=== PATIENT | male | born 1955 | race Two or more races ===

== ENCOUNTER 2016-11-04 16:28 | Emergency (ER) | payer SELFPAY ==
--- NOTE | 2016-11-04 16:54 | UCPHY ---
H & P Patient Type: New HPI/ROS: HPI CHIEF COMPLAINT: Cough, shortness of breath HISTORY OF PRESENT ILLNESS: This patient very pleasant 61-year-old male he tells me has no significant medical history he was seen at [facility] last week placed on cough medicine and Coricidin, however he tells me that the cough has gotten worse and settling into his chest. He does complain of shortness of breath. Denies chest pain, pleuritic pain, denies having any cardiac history. Currently upon arrival here in the Urgent Care he appears well nontoxic no acute distress, normal breath sounds, normal pulse ox. Past Medical History: Denies having any significant medical history specifically no coronary artery disease, hypertension, hyperlipidemia Past Surgical History: No recent surgical history Social History: Denies daily use of drugs alcohol tobacco products Family History: Noncontributory ROS REVIEW OF SYSTEMS: A comprehensive 10 point review of systems is otherwise negative aside from elements mentioned in the history of present illness. Exam Constitutional triage nursing summary reviewed, vital signs reviewed, awake/ alert. Eyes normal conjunctivae and sclera, EOMI, PERRLA. HENT normal inspection, atraumatic, moist mucus membranes, no epistaxis, neck supple/ no meningismus, no raccoon eyes. Respiratory clear to auscultation bilaterally, normal breath sounds, no respiratory distress, no wheezing. Cardiovascular rate normal, regular rhythm, no murmur, no edema, distal pulses normal. Gastrointestinal soft, non-tender, no rebound, no guarding, normal bowel sounds, no distension, no pulsatile mass. Genitourinary no CVA tenderness. Musculoskeletal no midline vertebral tenderness, full range of motion, no calf swelling, no tenderness of extremities, no meningismus, good pulses, neurovascularly intact. Skin pink, warm, & dry, no rash, skin atraumatic. Neurologic awake, alert and oriented x 3, AAOx3, moves all 4 extremities equally, motor intact, sensory intact, CN II-XII intact, normal cerebellar, normal vision, normal speech. Psychiatric normal mood/affect. Heme/Lymph/Immune no lymphadenopathy. Differential Diagnosis: Includes but is not limited to in a particular order, viral syndrome, upper respiratory tract infection, pneumonia, viral/bacterial pneumonia pulmonary embolism, cardiac disease Medical Decision Making: patient had an IV established obtain blood work, patient had a two view chest x-ray, DuoNeb breathing treatment, EKG, troponin, D -dimer. Re-evaluation: EKG interpretation by me on record in [employer] system. Impression time of EKG 1808, this is sinus tachycardia rate of 109 no acute ischemic changes appreciated specifically no ST elevation, ST depression T-wave abnormalities. 1906: re-examination at this time this patient is resting comfortably. Clear lungs. Feels much better after DuoNeb breathing treatment. Blood work has been reviewed is unremarkable except for low sodium he will need this recheck with his primary care doctor he understands this. Also chest x-ray has been reviewed shows no focal pneumonia. Clinically the patient has upper respiratory tract infection with bronchitis. Will place on prednisone, albuterol, azithromycin, guaifenesin. Source: Patient - Personal History Tetanus Vaccine Date: 2012 - Medical/Surgical History Other PMH: denies - Family History Significant Family History: No pertinent family hx - Social History Smoking Status: Never smoked Constitutional: Initial Vital Signs Temperature (C) 36.5 C 11/04/16 17:02 Heart Rate 94 11/04/16 17:02 Respiratory Rate 16 11/04/16 17:02 Blood Pressure 170/120 H 11/04/16 17:02 O2 Sat (%) 99 11/04/16 17:02 O2 Delivery Mode Room Air Allergies/Adverse Reactions: Penicillins Allergy (Verified 11/04/16 16:51) Home Medications: Medication Instructions Recorded AZITHROMYCIN [Z-PACK] 250 mg PO DAILY #6 tab 11/04/16 Albuterol [Proventil Inhaler HFA 1 - 2 puffs IH Q4H #1 mdi 11/04/16 (*)] Guaifenesin [Guaifenesin ER] 600 mg PO BID #14 tab.er.12h 11/04/16 predniSONE 60 mg PO DAILY #15 tab 11/04/16 Medical Decision Making - Data Points Laboratory Results: Laboratory Results 11/04/16 17:45 11/04/16 17:45 11/04/16 11/04/16 11/04/16 17:45 17:45 17:45 WBC 5.11 10^3/uL 10^3/uL (3.80-9.50) RBC 4.61 10^6/uL 10^6/uL (4.40-6.38) Hgb 14.5 g/dL g/dL (13.7-17.5) Hct 40.5 % % (40.0-51.0) MCV 87.9 fL fL (81.5-99.8) MCH 31.5 pg pg (27.9-34.1) MCHC 35.8 g/dL g/dL (32.4-36.7) RDW 13.3 % % (11.5-15.2) Plt Count 216 10^3/uL 10^3/uL (150-400) MPV 9.4 fL fL (8.7-11.7) Neut % (Auto) 61.4 % % (39.3-74.2) Lymph % (Auto) 18.0 % % (15.0-45.0) Yancey % (Auto) 18.8 % H % (4.5-13.0) Eos % (Auto) 0.0 % L % (0.6-7.6) Baso % (Auto) 1.4 % % (0.3-1.7) Nucleat RBC Rel Count 0.0 % % (0.0-0.2) Absolute Neuts (auto) 3.14 10^3/uL 10^3/uL (1.70-6.50) Absolute Lymphs (auto) 0.92 10^3/uL L 10^3/uL (1.00-3.00) Absolute Monos (auto) 0.96 10^3/uL H 10^3/uL (0.30-0.80) Absolute Eos (auto) 0.00 10^3/uL L 10^3/uL (0.03-0.40) Absolute Basos (auto) 0.07 10^3/uL 10^3/uL (0.02-0.10) Absolute Nucleated RBC 0.00 10^3/uL 10^3/uL (0-0.01) Immature Gran % 0.4 % % (0.0-1.1) Immature Gran # 0.02 10^3/uL 10^3/uL (0.00-0.10) PT 12.4 SEC SEC (12.0-15.0) INR 0.95 (0.83-1.16) APTT 26.3 SEC SEC (23.0-38.0) D-Dimer < 0.27 ug/mLFEU ug/mLFEU (0.00-0.50) Sodium 129 mEq/L L mEq/L (134-144) Potassium 3.7 mEq/L mEq/L (3.5-5.2) Chloride 91 mEq/L L mEq/L (97-110) Carbon Dioxide 24 mEq/l mEq/l (22-31) Anion Gap 14 mEq/L mEq/L (8-16) BUN 9 mg/dL mg/dL (7-23) Creatinine 0.7 mg/dL mg/dL (0.7-1.3) Estimated GFR > 60 Glucose 108 mg/dL H mg/dL (70-100) Calcium 9.1 mg/dL mg/dL (8.5-10.4) Troponin I < 0.012 ng/mL ng/mL (0-0.034) NT-Pro-B Natriuret Pep 68 pg/mL pg/mL (0-125) Medications Given: Discontinued Medications Albuterol/Ipratropium (Duoneb) 3 ml IH EDNOW ONE Stop: 11/04/16 17:30 Last Admin: 11/04/16 17:56 Dose: 3 ml Sodium Chloride (Ns) 500 mls @ 0 mls/hr IV ONCE ONE PRN Reason: As Directed Stop: 11/04/16 17:30 Last Admin: 11/04/16 17:56 Dose: 500 mls Departure - Departure Disposition: Home, Routine, Self-Care Clinical Impression: Hyponatremia, Bronchitis Condition: Good Instructions: Acute Bronchitis (ED) Additional Instructions: 1. Please return to the urgent care or emergency room if you have any worsening symptoms questions or concerns. 2. Please get your sodium rechecked in 3 days with her primary care doctor. Referrals: NONE *PRIMARY CARE P,. [Primary Care Provider] - As per Instructions Prescriptions: Albuterol [Proventil Inhaler HFA (*)] 1 - 2 puffs IH Q4H #1 mdi AZITHROMYCIN [Z-PACK] 250 mg PO DAILY #6 tab Guaifenesin [Guaifenesin ER] 600 mg PO BID #14 tab.er.12h predniSONE 60 mg PO DAILY #15 tab - PQRS PQRS Measurement: n/a
[2016-11-04] MEDS ORDERED: NS 500 ML IV ONE (17:29)
[2016-11-04] MEDS ORDERED: IPRATROPIUM/ALBUTEROL 3 ML DEYVIAL IH ONE (17:29)
[2016-11-04 17:35] VITALS: RESP 20; TEMP 98.1
[2016-11-04 18:00] LABS: % IMMATURE GRANULYOCYTES 0.4 % (0.0-1.1); ABSOLUTE IMMATURE GRANULOCYTES 0.02 10^3/uL (0.00-0.10); ADD DIFF? NO; ADD MORPH? NO; ADD SCAN? NO; ATYPICAL LYMPHOCYTE FLAG 0 (0-99); FRAGMENT RBC FLAG 0 (0-99); HEMATOCRIT 40.5 % (40.0-51.0); HEMOGLOBIN 14.5 g/dL (13.7-17.5); LEFT SHIFT FLG 0 (0-99); LIPEMIA HEMOLYSIS FLAG 90 (0-99); MEAN CELL HEMOGLOBIN 31.5 pg (27.9-34.1); MEAN CELL HEMOGLOBIN CONCENTR. 35.8 g/dL (32.4-36.7); MEAN CELL VOLUME 87.9 fL (81.5-99.8); MEAN PLATELET VOLUME 9.4 fL (8.7-11.7); PLATELET CLUMPS FLAG 0 (0-99); PLATELET COUNT 216 10^3/uL (150-400); RED BLOOD CELL COUNT 4.61 10^6/uL (4.40-6.38); RED CELL DISTRIBUTION WIDTH 13.3 % (11.5-15.2)
--- NOTE | 2016-11-04 18:11 | CPEKG ---
Heart Rate: 109 RR Interval: 550 P-R Interval: 188 QRSD Interval: 86 QT Interval: 344 QTC Interval: 464 P Hoagland: 62 QRS Hoagland: 40 T Wave Hoagland: 35 EKG Severity - OTHERWISE NORMAL ECG - EKG Impression: SINUS TACHYCARDIA Electronically Signed By: Sal Amor 05-Nov-2016 12:00:25
[2016-11-04 18:18] LABS: INR 0.95 (0.83-1.16); PROTIME(PATIENT) 12.4 SEC (12.0-15.0)
[2016-11-04 18:19] LABS: APTT 26.3 SEC (23.0-38.0)
[2016-11-04 18:21] LABS: ANION GAP 14 mEq/L (8-16); CALCIUM 9.1 mg/dL (8.5-10.4); CARBON DIOXIDE 24 mEq/l (22-31); CHLORIDE 91 mEq/L (97-110); CREATININE 0.7 mg/dL (0.7-1.3); GLOMERULAR FILTRATION RATE > 60; GLUCOSE 108 mg/dL (70-100); POTASSIUM 3.7 mEq/L (3.5-5.2); SODIUM 129 mEq/L (134-144)
[2016-11-04 18:33] LABS: TROPONIN I < 0.012 ng/mL (0-0.034)
[2016-11-04 19:20] VITALS: O2SAT 97
[2016-11-04 19:25] VITALS: BP 151/98; PULSE 88
== END 2016-11-04 19:20 | disposition home or self-care (01) ==
LOC: CED 16:28
DX: J40 Bronchitis, not specified as acute or chronic (principal); E87.1 Hypo-osmolality and hyponatremia; Z88.0 Allergy status to penicillin
CPT/HCPCS: 71020-PO; 80048-PO; 83880-PO; 84484-PO; 85025-PO; 85378-PO; 85610-PO; 85730-PO; 93010-PO; 96360-PO; 99205-PO; G0463-PO

== ENCOUNTER 2016-12-20 08:29 | Emergency (ER) | payer SELFPAY ==
[2016-12-20] MEDS ORDERED: IPRATROPIUM/ALBUTEROL 3 ML DEYVIAL IH ONE (08:47)
--- NOTE | 2016-12-20 08:51 | EDPHY ---
H & P Time Seen by Provider: 12/20/16 08:39 HPI/ROS: CHIEF COMPLAINT: Cough HISTORY OF PRESENT ILLNESS: Patient is a 61-year-old male who presents to the emergency department with cough since last night. Patient states he thinks it may be related to the weather. His cough is worse when lying down. It is productive of yellow sputum. He describes mild shortness of breath. No chest pain or pressure. Patient denies fevers or chills. No nausea or vomiting. No leg pain or swelling. Patient was diagnosed with bronchitis last month during a visit. REVIEW OF SYSTEMS: My complete review of systems is negative except as mentioned in the HPI. Past Medical/Surgical History: Bronchitis Past surgical history: Noncontributory Social history: The patient does not smoke Smoking Status: Never smoked Physical Exam: Vitals noted GENERAL: Well-appearing, in no acute distress, alert. HEENT: Eyes normal to inspection, normal pharynx, no signs of dehydration. NECK: No thyromegaly, no lymphadenopathy, supple. RESPIRATORY: Clear to auscultation bilaterally, no rales, rhonchi or wheezing. Normal. No distress. CVS: Regular rate and rhythm, no rubs, murmurs, or gallops. ABDOMEN: Soft, nontender, nondistended, no organomegaly. BACK: Normal to inspection, no CVA tenderness. SKIN: Normal color, no rash, warm, dry. No pallor. EXTREMITIES: No pedal edema, no calf tenderness, no Homans sign or cords, no joint swelling. NEURO/PSYCH: [Alert and oriented, normal mood and affect, normal motor sensory exam. Constitutional: Initial Vital Signs Temperature (C) 37.1 C 12/20/16 08:34 Heart Rate 112 H 12/20/16 08:34 Respiratory Rate 20 12/20/16 08:34 Blood Pressure 135/81 H 12/20/16 08:34 O2 Sat (%) 96 12/20/16 08:34 O2 Delivery Mode Room Air Allergies/Adverse Reactions: Penicillins Allergy (Verified 11/04/16 16:51) Home Medications: Medication Instructions Recorded AZITHROMYCIN [Z-PACK] 250 mg PO DAILY #6 tab 11/04/16 Albuterol [Proventil Inhaler HFA 1 - 2 puffs IH Q4H #1 mdi 11/04/16 (*)] Guaifenesin [Guaifenesin ER] 600 mg PO BID #14 tab.er.12h 11/04/16 predniSONE 60 mg PO DAILY #15 tab 11/04/16 AZITHROMYCIN [Z-PACK] 250 mg PO DAILY #1 packet 12/20/16 Albuterol [Proventil Inhaler HFA 1 - 2 puffs IH Q4H #1 mdi 12/20/16 (*)] predniSONE 20 mg PO DAILY 4 Days 12/20/16 Medical Decision Making - Diagnostics Imaging Results: Imaging Impressions Chest X-Ray 12/20/16 08:47 Impression: Bilateral lung densities, unchanged x2 months and unlikely to represent pneumonia. If there are any older outside chest x-rays, we would be happy to review them to assess for interval change. If not, consider noncontrast chest CT for further evaluation. Results called to Dr. Cr at 9:21 am. ED Course/Re-evaluation: In the emergency department I discussed possible etiologies with the patient. I answered all his questions. He consented to a chest x-ray. Patient was given a DuoNeb. The nurse states that she her wheezing on his presentation in triage. On my exam the patient has no wheezing at this time. It is snowing outside knee came in from the cold. I reviewed the patient's records from previous visit. He was noted to have a sodium of 129. I discussed this with the patient. He states he has had it rechecked and it was normal. Chest x-ray: Please refer the dictated report by Dr. Carson. I discussed x-ray results with Dr. Carson. Patient is noted to have a nodule in the right and an abnormality on the left. This is not acute. This needs follow-up. I discussed x-ray findings with the patient. He understands he needs to get further follow-up by clinical [place] seen a for his x-ray findings. Differential Diagnosis: My differential includes but is not limited to bronchitis, pneumonia, pneumothorax, reactive airway disease, URI, bacteremia, sepsis, ACS, acute MA, PE - Data Points Medications Given: Discontinued Medications Albuterol/Ipratropium (Duoneb) 3 ml IH EDNOW ONE Stop: 12/20/16 08:48 Last Admin: 12/20/16 09:05 Dose: 3 ml Departure - Departure Disposition: Home, Routine, Self-Care Clinical Impression: Acute bronchitis Qualifiers: Bronchitis organism: other organism Qualified Code(s): J20.8 - Acute bronchitis due to other specified organisms Condition: Good Instructions: Acute Bronchitis (ED) Additional Instructions: Return with increasing cough or shortness of breath. Take your medications as directed. Your x-ray did not show any acute abnormality or pneumonia. However, there were nodules noted on her chest x-ray. These need to be followed up by her primary care provider. Call to make an appointment with her primary care provider. Referrals: [facility],. [Clinic] - 3-4 days, if not improved
[2016-12-20 09:39] VITALS: BP 128/62; PULSE 89; RESP 18; TEMP 98; O2SAT 97
== END 2016-12-20 09:37 | disposition home or self-care (01) ==
LOC: CED 08:29
DX: J20.8 Acute bronchitis due to other specified organisms (principal)
CPT/HCPCS: 71020-PO

== ENCOUNTER 2016-12-20 23:45 | Emergency (ER) | payer SELFPAY ==
[2016-12-21 00:01] VITALS: RESP 16; TEMP 97.9
[2016-12-21] MEDS ORDERED: IPRATROPIUM/ALBUTEROL 3 ML DEYVIAL IH ONE (01:25)
[2016-12-21] MEDS ORDERED: HYDROCOD/APAP 5/325 PREPACK#6 BTL TAKEHOME ONE (01:25)
--- NOTE | 2016-12-21 01:28 | EDPHY ---
H & P Stated Complaint: continued cough and runny nose; Dx with bronchitis today Time Seen by Provider: 12/21/16 00:45 HPI/ROS: HPI The patient presents with cough making it difficult for him to sleep tonight. He was diagnosed earlier in the day with bronchitis with a relatively normal chest x-ray. He was discharged with prescriptions for albuterol, prednisone, azithromycin. He is taking Mucinex and Robitussin to help with his cough but he finds that at night while sleeping he has fits of coughing. This is no worse then previous, but he is asking for medication for the cough. He is not having any shortness of breath, fever, chest pain. REVIEW OF SYSTEMS Constitutional: No fever, no chills. Eyes: No discharge. ENT: No sore throat. Cardiovascular: No chest pain, no palpitations. Respiratory: No cough, no shortness of breath. Gastrointestinal: No abdominal pain, no vomiting. Genitourinary: No hematuria. Musculoskeletal: No back pain. Skin: No rashes. Neurological: No headache. PMHx: Bronchitis Soc Hx: Nonsmoker PHYSICAL General Appearance: Alert, no distress Eyes: Pupils equal and round no pallor or injection ENT, Mouth: Mucous membranes moist Respiratory: There are no retractions, lungs are clear to auscultation Cardiovascular: Regular rate and rhythm Gastrointestinal: Abdomen is soft and non-tender, no masses, bowel sounds normal Neurological: A&O, moves all extremities Skin: Warm and dry, no rashes Musculoskeletal: Neck is supple non tender Extremities: symmetrical, full range of motion Psychiatric: Patient is oriented X 3, there is no agitation Source: Patient Exam Limitations: No limitations - Personal History Current Tetanus/Diphtheria Vaccine: Yes Current Tetanus Diphtheria and Acellular Pertussis (TDAP): Yes Tetanus Vaccine Date: 2012 - Medical/Surgical History Hx Asthma: No Hx Chronic Respiratory Disease: No Hx Diabetes: No Hx Cardiac Disease: No Hx Renal Disease: No Hx Cirrhosis: No Hx Alcoholism: No Hx HIV/AIDS: No Hx Splenectomy or Spleen Trauma: No Other PMH: bronchitis - Social History Smoking Status: Never smoked Constitutional: Initial Vital Signs Temperature (C) 36.6 C 12/20/16 23:59 Heart Rate 89 12/20/16 23:59 Respiratory Rate 16 12/20/16 23:59 Blood Pressure 144/85 H 12/20/16 23:59 O2 Sat (%) 97 04/29/17 23:59 O2 Delivery Mode Room Air Allergies/Adverse Reactions: Penicillins Allergy (Verified 11/04/16 16:51) Home Medications: Medication Instructions Recorded Guaifenesin [Guaifenesin ER] 600 mg PO BID #14 tab.er.12h 11/04/16 predniSONE 60 mg PO DAILY #15 tab 11/04/16 AZITHROMYCIN [Z-PACK] 250 mg PO DAILY #1 packet 12/20/16 Albuterol [Proventil Inhaler HFA 1 - 2 puffs IH Q4H #1 mdi 12/20/16 (*)] Benzonatate [Tessalon Pearles (RX)] 100 mg PO TID PRN #30 cap 12/21/16 Medical Decision Making Differential Diagnosis: This is a 61-year-old male with diagnosis of bronchitis today, with about 2 days of coughing who comes in asking for antitussive medication because of difficulty sleeping because of the cough. On exam he has normal vital signs, he is very well-appearing, his lungs are clear bilaterally. He is in absolutely no respiratory distress. He is taking Robitussin and Mucinex though continues to have cough at night. He also has a prescription for albuterol, I will issue him a spacer with this. I will give him a DuoNeb here and a prescription for [place] to help with his cough. I have instructed him to sleep sitting up as this may help his symptoms as well. I do not feel he needs repeat imaging given his well appearance. - Data Points Medications Given: Discontinued Medications Hydrocodone Bitart/Acetaminophen ([place] 5/325mg Prepack#6) 1 btl TAKEHOME EDNOW ONE Stop: 12/21/16 01:26 Last Admin: 12/21/16 01:35 Dose: 1 btl Albuterol/Ipratropium (Duoneb) 3 ml IH EDNOW ONE Stop: 12/21/16 01:26 Last Admin: 12/21/16 01:35 Dose: 3 ml Departure - Departure Disposition: Home, Routine, Self-Care Clinical Impression: Acute bronchitis Qualifiers: Bronchitis organism: other organism Qualified Code(s): J20.8 - Acute bronchitis due to other specified organisms Condition: Good Instructions: Cold Symptoms (ED) Additional Instructions: Please follow-up with your regular doctor in the next 1-2 days unless your completely better. Referrals: TERRELL SANDERSON [Other] - As per Instructions Prescriptions: Benzonatate [Tessalon Pearles (RX)] 100 mg PO TID PRN #30 cap PRN Reason: Cough, Mild
[2016-12-21 02:16] VITALS: BP 132/77; PULSE 88; O2SAT 96
== END 2016-12-21 02:15 | disposition home or self-care (01) ==
DX: J20.9 Acute bronchitis, unspecified (principal)

== ENCOUNTER 2017-03-12 19:07 | Observation (INO) | payer MEDICAID, OTHER ==
--- NOTE | 2017-03-12 19:08 | EDPHY ---
H & P HPI/ROS: HPI CHIEF COMPLAINT: Chest pain HISTORY OF PRESENT ILLNESS: This patient very pleasant 62-year-old male, significant past medical history for bronchitis, does not take any daily medications, denies tobacco use, he presents to the emergency room by bicycle, with chest pain. States over today he has had 3 episodes of separate chest pain. It lasted very short brief periods of minutes. He does describe diaphoresis with it. States this started earlier around 10:00 a.m. this morning. He was washing dishes got diaphoretic and had left-sided chest discomfort he describes as something poking him. States it lasted very brief. It happened to him two more times once while riding his bicycle. Of note this patient speaks [place] his primary language however he is pretty fluid in Chinese. We were able to get a good history review of systems. He has never had a stress test. He denies ever having any history of lung or heart problems except for bronchitis. Past Medical History: Bronchitis Past Surgical History: Denies recent surgical history Social History: Denies daily use of drugs alcohol tobacco products. Lives locally. Only means of transportation is a bicycle. Works in a restaurant. Family History: Noncontributory ROS REVIEW OF SYSTEMS: A comprehensive 10 point review of systems is otherwise negative aside from elements mentioned in the history of present illness. Exam Constitutional appears well nontoxic, triage nursing summary reviewed, vital signs reviewed, awake/alert. Noted to be hypertensive here. Eyes normal conjunctivae and sclera, EOMI, PERRLA. HENT normal inspection, atraumatic, moist mucus membranes, no epistaxis, neck supple/ no meningismus, no raccoon eyes. Respiratory clear to auscultation bilaterally, normal breath sounds, no respiratory distress, no wheezing. Cardiovascular rate normal, regular rhythm, no murmur, no edema, distal pulses normal. Gastrointestinal soft, non-tender, no rebound, no guarding, normal bowel sounds, no distension, no pulsatile mass. Genitourinary no CVA tenderness. Musculoskeletal no midline vertebral tenderness, full range of motion, no calf swelling, no tenderness of extremities, no meningismus, good pulses, neurovascularly intact. Skin pink, warm, & dry, no rash, skin atraumatic. Neurologic awake, alert and oriented x 3, AAOx3, moves all 4 extremities equally, motor intact, sensory intact, CN II-XII intact, normal cerebellar, normal vision, normal speech. Psychiatric normal mood/affect. Heme/Lymph/Immune no lymphadenopathy. Differential diagnosis includes but is not limited to: ACS, atypical chest pain , pneumothorax, pneumonia, pulmonary embolism, aortic dissection, congestive heart failure, tumor, musculoskeletal pain, esophageal pain, GERD, peptic ulcer disease, pancreatitis Medical Decision Making: Plan for this patient IV establishment, blood work, full telemetry monitor, EKG, full-dose aspirin, check troponin, D-dimer, two view chest x-ray, rule out acute coronary syndrome. Re-evaluation: EKG interpretation by me on record in [employer] system. Impression time of EK, sinus rhythm rate of 99, I do not appreciate acute ischemic changes specifically I do not appreciate ST elevation, significant ST depression significant T-wave abnormalities. No prolonged intervals. No signs of cardiac arrhythmia. When I compare this EKG to his old EKG dated 11/04/2016 is similar in morphology. Risk factors for cardiac disease include: Age, underlying hypertension, he does not have a primary care doctor, also his clinical story of chest pain with exertion once while washing dishes and getting diaphoretic as well as once while riding his bike is concerning. Most likely this patient need to be admitted the hospital for serial enzyme serial EKGs and stress test. He is agreeable for transfer to [facility]. 2013: At this time patient has no chest pain. Given his story of exertional chest pain with diaphoresis, underlying risk factors including age and hypertension, I do recommend he gets admitted for serial enzymes and rule out. Dr. Dorman the hospitalist service has agreed to admit this patient. Patient agreed for admission, agree for ambulance transfer from [facility] Emergency room to [facility]. Source: Patient - Personal History Tetanus Vaccine Date: 2012 - Medical/Surgical History Hx Asthma: No Hx Chronic Respiratory Disease: No Hx Diabetes: No Hx Cardiac Disease: No Hx Renal Disease: No Hx Cirrhosis: No Hx Alcoholism: No Hx HIV/AIDS: No Hx Splenectomy or Spleen Trauma: No Other PMH: bronchitis - Social History Smoking Status: Never smoked Constitutional: Initial Vital Signs Temperature (C) 36.8 C 03/12/17 19:09 Heart Rate 99 03/12/17 19:09 Respiratory Rate 16 03/12/17 19:09 Blood Pressure 147/110 H 03/12/17 19:09 O2 Sat (%) 97 03/12/17 19:09 O2 Delivery Mode Room Air Allergies/Adverse Reactions: Penicillins Allergy (Verified 03/12/17 19:17) Home Medications: Medication Instructions Recorded NK [No Known Home Meds] 03/12/17 Medical Decision Making - Diagnostics Imaging Results: Imaging Impressions Chest X-Ray 03/12/17 19:18 Impression: Clear lungs. No acute process. - Data Points Laboratory Results: Laboratory Results 03/12/17 16:20 03/12/17 16:20 03/12/17 03/12/17 03/12/17 16:20 16:20 16:20 WBC 5.09 10^3/uL 10^3/uL (3.80-9.50) RBC 4.55 10^6/uL 10^6/uL (4.40-6.38) Hgb 14.4 g/dL g/dL (13.7-17.5) Hct 40.4 % % (40.0-51.0) MCV 88.8 fL fL (81.5-99.8) MCH 31.6 pg pg (27.9-34.1) MCHC 35.6 g/dL g/dL (32.4-36.7) RDW 13.8 % % (11.5-15.2) Plt Count 215 10^3/uL 10^3/uL (150-400) MPV 9.8 fL fL (8.7-11.7) Neut % (Auto) 57.6 % % (39.3-74.2) Lymph % (Auto) 30.8 % % (15.0-45.0) Hand % (Auto) 10.2 % % (4.5-13.0) Eos % (Auto) 0.0 % L % (0.6-7.6) Baso % (Auto) 1.0 % % (0.3-1.7) Nucleat RBC Rel Count 0.0 % % (0.0-0.2) Absolute Neuts (auto) 2.93 10^3/uL 10^3/uL (1.70-6.50) Absolute Lymphs (auto) 1.57 10^3/uL 10^3/uL (1.00-3.00) Absolute Monos (auto) 0.52 10^3/uL 10^3/uL (0.30-0.80) Absolute Eos (auto) 0.00 10^3/uL L 10^3/uL (0.03-0.40) Absolute Basos (auto) 0.05 10^3/uL 10^3/uL (0.02-0.10) Absolute Nucleated RBC 0.00 10^3/uL 10^3/uL (0-0.01) Immature Gran % 0.4 % % (0.0-1.1) Immature Gran # 0.02 10^3/uL 10^3/uL (0.00-0.10) PT 12.7 SEC SEC (12.0-15.0) INR 0.98 (0.83-1.16) APTT 26.5 SEC SEC (23.0-38.0) D-Dimer < 0.27 ug/mLFEU ug/mLFEU (0.00-0.50) Sodium 132 mEq/L L mEq/L (134-144) Potassium 3.7 mEq/L mEq/L (3.5-5.2) Chloride 97 mEq/L mEq/L (97-110) Carbon Dioxide 21 mEq/l L mEq/l (22-31) Anion Gap 14 mEq/L mEq/L (8-16) BUN 9 mg/dL mg/dL (7-23) Creatinine 0.7 mg/dL mg/dL (0.7-1.3) Estimated GFR > 60 Glucose 95 mg/dL mg/dL (70-100) Calcium 9.5 mg/dL mg/dL (8.5-10.4) Magnesium 1.9 mg/dL mg/dL (1.6-2.3) Total Bilirubin 0.8 mg/dL mg/dL (0.1-1.4) Conjugated Bilirubin 0.3 mg/dL mg/dL (0.0-0.5) Unconjugated Bilirubin 0.5 mg/dL mg/dL (0.0-1.1) AST 49 IU/L IU/L (17-59) ALT 48 IU/L IU/L (21-72) Alkaline Phosphatase 62 IU/L IU/L (38-126) Creatine Kinase 324 IU/L H IU/L (0-224) CK-MB (CK-2) Fraction 1.82 ng/mL ng/mL (0-4.55) CK-MB (CK-2) % 0.6 % % (0.0-4.0) Creatine Kinase Interp NEGATIVE (NEGATIVE) Troponin I < 0.012 ng/mL ng/mL (0-0.034) NT-Pro-B Natriuret Pep 78 pg/mL pg/mL (0-125) Total Protein 7.2 g/dL g/dL (6.3-8.2) Albumin 4.6 g/dL g/dL (3.5-5.0) Medications Given: Discontinued Medications Aspirin (Aspirin) 324 mg PO EDNOW ONE Stop: 03/12/17 19:18 Last Admin: 03/12/17 19:20 Dose: 324 mg Sodium Chloride (Ns) 1,000 mls @ 0 mls/hr IV ONCE ONE; Wide Open PRN Reason: Protocol Stop: 03/12/17 19:18 Last Admin: 03/12/17 19:25 Dose: 1,000 mls Departure - Departure Disposition: [facility] Inpatient Acute Clinical Impression: Chest pain Qualifiers: Chest pain type: unspecified Qualified Code(s): R07.9 - Chest pain, unspecified Condition: Fair
[2017-03-12] MEDS ORDERED: ASPIRIN 81 MG CHEWABLE TAB PO ONE (19:17)
[2017-03-12] MEDS ORDERED: NS 1,000 ML IV ONE (19:17)
[2017-03-12] MEDS ORDERED: ASPIRIN 81 MG CHEWABLE TAB ONE (19:23)
[2017-03-12 19:28] LABS: % IMMATURE GRANULYOCYTES 0.4 % (0.0-1.1); ABSOLUTE IMMATURE GRANULOCYTES 0.02 10^3/uL (0.00-0.10); ADD DIFF? NO; ADD MORPH? NO; ADD SCAN? NO; ATYPICAL LYMPHOCYTE FLAG 0 (0-99); FRAGMENT RBC FLAG 0 (0-99); HEMATOCRIT 40.4 % (40.0-51.0); HEMOGLOBIN 14.4 g/dL (13.7-17.5); LEFT SHIFT FLG 0 (0-99); LIPEMIA HEMOLYSIS FLAG 90 (0-99); MEAN CELL HEMOGLOBIN 31.6 pg (27.9-34.1); MEAN CELL HEMOGLOBIN CONCENTR. 35.6 g/dL (32.4-36.7); MEAN CELL VOLUME 88.8 fL (81.5-99.8); MEAN PLATELET VOLUME 9.8 fL (8.7-11.7); PLATELET CLUMPS FLAG 0 (0-99); PLATELET COUNT 215 10^3/uL (150-400); RED BLOOD CELL COUNT 4.55 10^6/uL (4.40-6.38); RED CELL DISTRIBUTION WIDTH 13.8 % (11.5-15.2)
[2017-03-12 19:38] LABS: APTT 26.5 SEC (23.0-38.0); INR 0.98 (0.83-1.16); PROTIME(PATIENT) 12.7 SEC (12.0-15.0)
[2017-03-12 19:41] LABS: ALANINE AMINOTRANSFERASE 48 IU/L (21-72); ALBUMIN 4.6 g/dL (3.5-5.0); ALKALINE PHOSPHATASE 62 IU/L (38-126); ANION GAP 14 mEq/L (8-16); ASPARTATE AMINOTRANSFERASE 49 IU/L (17-59); BILIRUBIN,TOTAL 0.8 mg/dL (0.1-1.4); BILIRUBIN-CONJUGATED 0.3 mg/dL (0.0-0.5); BILIRUBIN-UNCONJUGATED 0.5 mg/dL (0.0-1.1); CALCIUM 9.5 mg/dL (8.5-10.4); CARBON DIOXIDE 21 mEq/l (22-31); CHLORIDE 97 mEq/L (97-110); CREATININE 0.7 mg/dL (0.7-1.3); GLOMERULAR FILTRATION RATE > 60; GLUCOSE 95 mg/dL (70-100); MAGNESIUM 1.9 mg/dL (1.6-2.3); POTASSIUM 3.7 mEq/L (3.5-5.2); SODIUM 132 mEq/L (134-144); TOTAL PROTEIN 7.2 g/dL (6.3-8.2)
[2017-03-12 19:53] LABS: CK-MB INTERPRETATION NEGATIVE (NEGATIVE); CREATINE KINASE-MB FRACTION 1.82 ng/mL (0-4.55); TROPONIN I < 0.012 ng/mL (0-0.034)
[2017-03-12] MEDS ORDERED: NITROGLYCERIN 0.4 MG BTL SL ONE ×2 (20:20→20:22)
[2017-03-12] MEDS ORDERED: ONDANSETRON DISINTEGRATING 4 MG TAB PO PRN (22:04)
[2017-03-12] MEDS ORDERED: HYDROCODONE/APAP 5/325 TAB PO PRN (22:04)
[2017-03-12] MEDS ORDERED: ONDANSETRON 4 MG/2 ML VIAL IVP PRN (22:04)
[2017-03-12] MEDS ORDERED: PROMETHAZINE HCL 25 MG/ML INJ IVP PRN (22:04)
[2017-03-12] MEDS ORDERED: ACETAMINOPHEN 325 MG TAB PO PRN (22:04)
[2017-03-12] MEDS ORDERED: ZOLPIDEM TARTRATE 5 MG TAB PO PRN (22:04)
--- NOTE | 2017-03-12 22:44 | CPEKG ---
Heart Rate: 63 RR Interval: 952 P-R Interval: 176 QRSD Interval: 84 QT Interval: 416 QTC Interval: 426 P [place]: 70 QRS [place]: 47 T Wave [place]: 47 EKG Severity - NORMAL ECG - EKG Impression: SINUS RHYTHM Electronically Signed By: Sal Amor 13-Mar-2017 06:52:49
--- NOTE | 2017-03-12 23:49 | GHP ---
[f rep st] HISTORY AND PHYSICAL DATE OF ADMISSION: 03/12/2017 CHIEF COMPLAINT: Chest pain. HISTORY: This is a 62-year-old male with past medical history of bronchitis [facility]. He notes he had 3 separate bouts of chest pain eac h associated with diaphoresis. 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 He noted he go t diaphoretic and had substernal pain the last several minutes. It occurred twice more over the cou rse of the day, both times while riding his bicycle. He notes the pain was about a 5/10. He did no t have any associated nausea, and no radiation to the pain. He has never had similar problems in e past. He notes that he currently does not have any pain. PAST MEDICAL HISTORY: Bronchitis. SOCIAL HISTORY: Patient is a nonsmoker, nondrinker, nondrug user. He rides his bike for transporta tion and is quite active. FAMILY HISTORY: Negative for anybody with heart disease or heart attack. REVIEW OF SYSTEMS: Ten-point review of systems obtained and negative except as per HPI. MEDICATIONS: None. ALLERGIES: Penicillin. PHYSICAL EXAMINATION: VITAL SIGNS: BP 131/81, heart rate 88, respiratory rate 20, O2 sat is 97% on room air, temperature is 36.7. GENERAL APPEARANCE: Well-developed/well-nourished man. He is awak e and alert. He is in no acute distress. EYES: Anicteric. HENT: Oropharynx clear. CARDIOVASCUL AR: RRR. No MRG. PULMONARY: CTA bilaterally. Normal work of breathing. ABDOMEN: Soft, nontend er, and nondistended. EXTREMITIES: No clubbing, cyanosis, or edema. SKIN: Warm, dry, well-perfus ed. NEURO/PSYCH: Oriented, appropriate, pleasant. CLINICAL DATA: Labs reviewed. CBC is completely unremarkable. D-dimer is less than 0.27. Crystal Slicer ry is notable for a sodium of 132. Troponin is less than 0.012. Chest x-ray personally reviewed and interpreted, shows no acute findings. EKG personally reviewed and interpreted, shows sinus rhythm with a rate in 99. No clear ischemic ch anges. ASSESSMENT AND PLAN: This is a 62-year-old man presenting with chest pain with exertion. 1. Chest pain. Concerning that it is occurring with exertion. His initial workup is nondiagnostic . Will trend troponins, and monitor on telemetry overnight. Will proceed with a stress test in the morning. 2. Pulmonary nodules. This was noted on 2 prior x-rays from October and November, but not commented on, on the most recent x-ray. He is followed by [facility]. X-ray from today does not make com ment on these nodules being present, and I do not appreciate them on personal review of x-ray either . He likely warrants a followup CT, if this has not been performed. Will attempt to obtain outpati ent records to confirm whether or not this is being followed. 3. Hyponatremia. This has been present on at least 1 prior occasion. Currently mild. Will rechec k in the morning. If still low, would work it up further. If it is consistent with syndrome of mary ppropriate antidiuretic hormone secretion, I would have more concerns that this is a clinically sign ificant pulmonary process, perhaps noted above. 4. Disposition. Observation status. Patient will need less than 48-hour stay for evaluation and m anagement of above. 5. Patient is new to my care. Old records reviewed, summarized as per History of Present Illness a nd Past Medical History. Care plan reviewed with emergency room physician including plans for stres s testing. /[id number]/MODL
[2017-03-13 05:23] LABS: ANION GAP 13 mEq/L (8-16); CALCIUM 9.3 mg/dL (8.5-10.4); CARBON DIOXIDE 24 mEq/l (22-31); CHLORIDE 101 mEq/L (97-110); CHOLESTEROL 206 mg/dL (140-220); CREATININE 0.8 mg/dL (0.7-1.3); GLOMERULAR FILTRATION RATE > 60; GLUCOSE 81 mg/dL (70-100); SODIUM 138 mEq/L (134-144); TRIGLYCERIDE 55 mg/dL (40-150); VERY LOW DENSITY LIPOPROTEINS 11 mg/dL (8-25)
[2017-03-13 05:33] LABS: TROPONIN I < 0.012 ng/mL (0-0.034)
[2017-03-13 06:40] LABS: CHOLESTEROL/HDL RATIO 1.62 RATIO (1.00-4.97); HIGH DENSITY LIPOPROTEIN 127 mg/dL (40-65); LDL/HDL RATIO 0.54 RATIO (1.00-3.64); LOW DENSITY LIPOPROTEIN 68 mg/dL (80-100)
[2017-03-13 06:41] LABS: NON-HIGH DENSITY LIPOPROTEIN 79 mg/dL (90-129)
--- NOTE | 2017-03-13 10:05 | CPEKG ---
Heart Rate: 80 RR Interval: 750 P-R Interval: 172 QRSD Interval: 86 QT Interval: 384 QTC Interval: 443 P [place]: 78 QRS [place]: 63 T Wave [place]: 67 EKG Severity - NORMAL ECG - EKG Impression: SINUS RHYTHM Electronically Signed By: Sal Amor 13-Mar-2017 14:09:37
--- NOTE | 2017-03-13 11:30 | PDCARST ---
CAR Stress Test Results Type of Stress Test: Nuc TM stress test Indication: cp Description of Procedure: After informed consent was obtained, pt was exercised according to Jose Protocol. Monitoring was performed with standard stress test center manager electrode placement. Vital signs were monitored according to protocol throughout the procedure. STRESS EKG AND HEMODYNAMIC DATA. Exercise time: 9 min. This is equivalent to: 10.2 METS. Resting heart rate: 87 bpm. Resting blood pressure: 120/80 mmHg. Resting O2 saturation: 97 %. Peak heart rate: 152 bpm. This is 96 % of age predicted maximum heart rate response. Peak blood pressure: 164/70 mmHg. Exercise O2: 96 %. Arrhythmias : None. Reason for termination: The test was stopped due to max heart rate achieved. Symptoms: The patient experienced no typical symptoms of angina during stress or recovery. STRESS TEST ANALYSIS. Baseline ECG: SR with J pt elevation. Stress ECG: Sinus. exercise induced ischemic ECG changes: No. Rhythm: No arrhythmias noted during exercise and recovery. Blood pressure: Normal blood pressure response to exercise. Exercise tolerance: The patient has above average exercise tolerance adjusted for age and gender. Symptoms: No exercise induced symptoms. IMPRESSIONS: Stress ECG negative for ischemia. The Muro Treadmill Score is 9, consistent with low cardiovascular risk (<1% annual mortality). Impression: DTS: +9, low risk Conclusion: Await nuclear images.
[2017-03-13 11:53] VITALS: BP 150/96; PULSE 72; RESP 17; TEMP 98.2; O2SAT 97
--- NOTE | 2017-03-14 05:12 | GDS ---
[f rep st] DISCHARGE SUMMARY DISCHARGE DIAGNOSIS: Chest pain with negative stress testing, suspect musculoskeletal. 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 He came into the hospital. Troponin and EKGs were unremarkable. Nucle ar medicine myocardial perfusion stress testing was completely normal without reversible ischemia an d normal ejection fraction. I do suspect this chest pain is musculoskeletal. DISCHARGE MEDICATIONS: Please see computer record for full detailed list. New medications: There are no new medications given at the time of hospital discharge. ADDITIONAL DISCHARGE INSTRUCTIONS: Follow up with primary care. Patient seen and examined by me on the day of discharge. /[id number]/MODL
== END 2017-03-13 14:43 | disposition home or self-care (01) ==
LOC: CED 19:07 → CEDHOLD 20:20 → F2W 21:57
PROVIDERS: ADMIT Internal Medicine; ATTEND Internal Medicine
DX: R07.9 Chest pain, unspecified (principal); R91.8 Other nonspecific abnormal finding of lung field; E87.1 Hypo-osmolality and hyponatremia
CPT/HCPCS: 71020-PO; 80048-PO; 80076-PO; 82550-PO; 82553-PO; 83735-PO; 83880-PO; 84484-PO; 85025-PO; 85378-PO; 85610-PO; 85730-PO; A9500; G0378

== ENCOUNTER 2017-05-12 12:22 | Emergency (ER) | payer MEDICAID, OTHER ==
[2017-05-12 12:32] VITALS: TEMP 98.1
[2017-05-12] MEDS ORDERED: NS 500 ML IV ONE (12:37)
[2017-05-12] MEDS ORDERED: predniSONE 20 MG TAB PO ONE (12:37)
--- NOTE | 2017-05-12 12:45 | CPEKG ---
Heart Rate: 104 RR Interval: 577 P-R Interval: 180 QRSD Interval: 82 QT Interval: 332 QTC Interval: 437 P [place]: 68 QRS [place]: 19 T Wave [place]: 41 EKG Severity - OTHERWISE NORMAL ECG - EKG Impression: SINUS TACHYCARDIA Electronically Signed By: Gareth Garnica 12-May-2017 14:02:31
--- NOTE | 2017-05-12 12:49 | EDPHY ---
H & P Time Seen by Provider: 05/12/17 12:28 HPI/ROS: HPI Short of breath. 62-year-old male by private vehicle. He complains of shortness of breath, worsening since 9:00 a.m., unrelieved with his albuterol inhaler which she states he takes for bronchitis. Denies any chest pain. He describes a mild dry , nonproductive cough and a mild sore throat. No other symptoms. He was admitted to our hospital for chest pain in mid February of this year. He had a negative workup included provocative testing. ROS: Constitutional: No fever, no chills. No weakness. Eyes: No discharge. No changes in vision. ENT: As above. No nasal congestion or rhinorrhea. Respiratory: As above. Cardiac: No chest pain, no palpitations. Gastrointestinal: No abdominal pain, no vomiting, no diarrhea. Genitourinary: No hematuria. No dysuria or increased frequency with urination. Musculoskeletal: No back pain. No neck pain. No myalgias or arthralgias. Skin: No rashes. Neurological: No headache. No focal weakness or altered sensation. Past medical history: Bronchitis. As above. Social history: Here by himself. He lives in a trailer home. He denies smoking. No alcohol. Physical Exam: General Appearance: Alert, mildly anxious. He states that the albuterol makes him anxious. This patient is responding to questions appropriately and in full sentences. This patient appears well-hydrated and well-nourished. Eyes: Pupils equal and round no pallor or injection. No lid edema, erythema or injection. ENT, Mouth: Mucous membranes are moist. The pharyngeal tissues are unremarkable. No edema or swelling. No asymmetry suggestive of abscess. No erythema or exudates. No stridor on auscultation of his neck. No voice changes. Respiratory: There are no retractions, lungs are clear to auscultation with good air movement bilaterally. No tachypnea. Cardiovascular: Regular rate and rhythm. Mildly tachycardic. No murmur. Neurological: Motor sensory function is grossly intact. Cranial nerves are normal. Gait is normal. Skin: Warm and dry, no rashes. Musculoskeletal: Neck is supple and nontender. Extremities are symmetrical. All joints range without pain or impingement. Psychiatric: No agitation. No depression. Database: EKG: EKG time is 12:43 p.m.; EKG shows a narrow complex normal sinus tachycardia with a ventricular rate of 104. The IN, QRS, QT intervals are within normal limits. There are no ST-T wave changes indicative of ischemic or injury pattern. No evidence of right heart strain. Interpreted by me. Imaging: Chest x-ray PA and lateral; the cardiac mediastinal silhouette is unremarkable. Hyper inflation, COPD. No evidence of infiltrate or pneumothorax. No acute cardiopulmonary disease process noted. Interpreted by me. Procedures: Emergency department course: An IV was placed. He was placed on a monitor. EKG was performed and reviewed by myself. His vital signs were reviewed. Tachycardia likely secondary to albuterol as above. Room air pulse oximetry 98%. He was given 60 mg of oral prednisone. 1:30 p.m., patient re-evaluated. Resting comfortably at this time. Results of his chest x-ray and EKG as well as blood work discussed with him. His presentation is not consistent with pulmonary embolism or acute coronary syndrome or pneumonia. His x-ray EKG and blood work are all reassuring. He feels comfortable going home and I feel he is safe for discharge. I will prescribe him a short course of prednisone for treatment of bronchitis/reactive airway disease. He has been instructed to continue his albuterol inhaler as needed. Return to emergency department precautions reviewed. All of his questions were answered. He was discharged in good condition. Differential Diagnosis: The differential diagnosis on this patient includes but is not limited to bronchitis, reactive airway disease. Pulmonary embolism, pneumonia, congestive heart failure, COPD unlikely. This represents a partial list of diagnoses considered. These considerations are based on history, physical exam, past history, reassessment and diagnostic testing. Smoking Status: Never smoked Constitutional: Initial Vital Signs Temperature (C) 36.7 C 05/12/17 12:28 Heart Rate 114 H 05/12/17 12:28 Respiratory Rate 20 05/12/17 12:28 Blood Pressure 179/110 H 05/12/17 12:28 O2 Sat (%) 98 05/12/17 12:28 O2 Delivery Mode Room Air Allergies/Adverse Reactions: Penicillins Allergy (Verified 05/12/17 12:33) Home Medications: Medication Instructions Recorded Albuterol PRN 05/12/17 predniSONE [prednisone 20mg (RX)] 60 mg PO DAILY #9 tab 05/12/17 Medical Decision Making - Diagnostics Imaging Results: Imaging Impressions Chest X-Ray 05/12/17 12:38 Impression: Clear lungs. No pneumonia or acute process. - Data Points Laboratory Results: Laboratory Results 05/12/17 12:50 05/12/17 12:50 05/12/17 05/12/17 05/12/17 12:50 12:50 12:50 WBC 3.84 10^3/uL 10^3/uL (3.80-9.50) RBC 4.51 10^6/uL 10^6/uL (4.40-6.38) Hgb 14.3 g/dL g/dL (13.7-17.5) Hct 39.9 % L % (40.0-51.0) MCV 88.5 fL fL (81.5-99.8) MCH 31.7 pg pg (27.9-34.1) MCHC 35.8 g/dL g/dL (32.4-36.7) RDW 14.2 % % (11.5-15.2) Plt Count 221 10^3/uL 10^3/uL (150-400) MPV 9.6 fL fL (8.7-11.7) Neut % (Auto) 58.4 % % (39.3-74.2) Lymph % (Auto) 30.7 % % (15.0-45.0) [place] % (Auto) 9.6 % % (4.5-13.0) Eos % (Auto) 0.0 % L % (0.6-7.6) Baso % (Auto) 1.3 % % (0.3-1.7) Nucleat RBC Rel Count 0.0 % % (0.0-0.2) Absolute Neuts (auto) 2.24 10^3/uL 10^3/uL (1.70-6.50) Absolute Lymphs (auto) 1.18 10^3/uL 10^3/uL (1.00-3.00) Absolute Monos (auto) 0.37 10^3/uL 10^3/uL (0.30-0.80) Absolute Eos (auto) 0.00 10^3/uL L 10^3/uL (0.03-0.40) Absolute Basos (auto) 0.05 10^3/uL 10^3/uL (0.02-0.10) Absolute Nucleated RBC 0.00 10^3/uL 10^3/uL (0-0.01) Immature Gran % 0.0 % % (0.0-1.1) Immature Gran # 0.00 10^3/uL 10^3/uL (0.00-0.10) PT 12.9 SEC SEC (12.0-15.0) INR 1.00 (0.83-1.16) APTT 25.4 SEC SEC (23.0-38.0) D-Dimer 0.35 ug/mLFEU ug/mLFEU (0.00-0.50) Sodium 135 mEq/L mEq/L (134-144) Potassium 3.9 mEq/L mEq/L (3.5-5.2) Chloride 100 mEq/L mEq/L (97-110) Carbon Dioxide 20 mEq/l L mEq/l (22-31) Anion Gap 15 mEq/L mEq/L (8-16) BUN 14 mg/dL mg/dL (7-23) Creatinine 0.8 mg/dL mg/dL (0.7-1.3) Estimated GFR > 60 Glucose 105 mg/dL H mg/dL (70-100) Calcium 9.9 mg/dL mg/dL (8.5-10.4) Troponin I < 0.012 ng/mL ng/mL (0.000-0.034) NT-Pro-B Natriuret Pep 83 pg/mL pg/mL (0-125) Medications Given: Discontinued Medications Sodium Chloride (Ns) 500 mls @ 1,000 mls/hr IV EDNOW ONE PRN Reason: Protocol Stop: 05/12/17 13:06 Last Admin: 05/12/17 12:54 Dose: 500 mls Prednisone (Prednisone) 60 mg PO EDNOW ONE Stop: 05/12/17 12:38 Last Admin: 05/12/17 12:45 Dose: 60 mg Departure - Departure Disposition: Home, Routine, Self-Care Clinical Impression: Bronchitis Condition: Good Instructions: Acute Bronchitis (ED), How to Use a Nebulizer (ED) Additional Instructions: Read and follow provided instructions. Follow-up with your primary care physician in 1-2 days at [facility] for re- evaluation. Take medication as prescribed. Continue to use albuterol inhaler as needed. 1-2 puffs every 2-4 hours for shortness of breath and cough. Return to the emergency department for worsening shortness of breath, cough, fever or other serious concerns. Referrals: ROD SANTIAGO,. [Primary Care Provider] - As per Instructions Prescriptions: predniSONE [prednisone 20mg (RX)] 60 mg PO DAILY #9 tab
[2017-05-12 13:00] LABS: ADD DIFF? NO; ADD MORPH? NO; ADD SCAN? NO; ATYPICAL LYMPHOCYTE FLAG 0 (0-99); FRAGMENT RBC FLAG 0 (0-99); HEMATOCRIT 39.9 % (40.0-51.0); HEMOGLOBIN 14.3 g/dL (13.7-17.5); LEFT SHIFT FLG 0 (0-99); LIPEMIA HEMOLYSIS FLAG 90 (0-99); MEAN CELL HEMOGLOBIN 31.7 pg (27.9-34.1); MEAN CELL HEMOGLOBIN CONCENTR. 35.8 g/dL (32.4-36.7); MEAN CELL VOLUME 88.5 fL (81.5-99.8); MEAN PLATELET VOLUME 9.6 fL (8.7-11.7); PLATELET CLUMPS FLAG 0 (0-99); PLATELET COUNT 221 10^3/uL (150-400); RED BLOOD CELL COUNT 4.51 10^6/uL (4.40-6.38); RED CELL DISTRIBUTION WIDTH 14.2 % (11.5-15.2)
[2017-05-12 13:14] LABS: PROTIME(PATIENT) 12.9 SEC (12.0-15.0)
[2017-05-12 13:15] LABS: ANION GAP 15 mEq/L (8-16); APTT 25.4 SEC (23.0-38.0); CALCIUM 9.9 mg/dL (8.5-10.4); CARBON DIOXIDE 20 mEq/l (22-31); CHLORIDE 100 mEq/L (97-110); CREATININE 0.8 mg/dL (0.7-1.3); GLOMERULAR FILTRATION RATE > 60; GLUCOSE 105 mg/dL (70-100); POTASSIUM 3.9 mEq/L (3.5-5.2); SODIUM 135 mEq/L (134-144)
[2017-05-12 13:28] LABS: TROPONIN I < 0.012 ng/mL (0.000-0.034)
[2017-05-12 13:42] VITALS: BP 155/98; PULSE 99; RESP 18; O2SAT 97
== END 2017-05-12 13:49 | disposition home or self-care (01) ==
LOC: CED 12:22
DX: J40 Bronchitis, not specified as acute or chronic (principal); E86.9 Volume depletion, unspecified
CPT/HCPCS: 71020-PO; 80048-PO; 83880-PO; 84484-PO; 85025-PO; 85378-PO; 85610-PO; 85730-PO

== ENCOUNTER 2017-07-20 12:12 | Emergency (ER) | payer MEDICAID, OTHER ==
[2017-07-20 12:24] VITALS: BP 163/106; PULSE 104; TEMP 98.2; O2SAT 97
--- NOTE | 2017-07-20 12:55 | EDPHY ---
H & P Time Seen by Provider: 07/20/17 12:20 HPI/ROS: This patient complains of coryza and cough for 1 weeks duration with occasional production of phlegm. He has associated sore throat that is mild in intensity and reduction in his appetite compared to baseline. He has had no other symptoms but does not feel he is improving yet was concerned that he might have pneumonia or some other Respiratory problem. He reports at times feeling slight wheezing her shortness of breath but ran out of the albuterol medication was prescribed in a previous visit April for bronchitis. He came here by private vehicle for further evaluation of his symptoms ROS: Constitutional: No fevers or chills. HEENT: No facial pain. No difficulty swallowing. No ear pain. Pulmonary: No hemoptysis. No pleuritic pain. No respiratory distress. Cardiovascular: No lightheadedness. No leg swelling or calf pain GI: No nausea or vomiting. He no diarrhea. Integumentary: No rash : No complaints 7 point ROS is otherwise negative. Social History: Occasional beer. No drug use. Smoking Status: Never smoked Physical Exam: Physical Exam Vital signs are normal with exception of hypertension General: No acute distress HEENT: Nose: Clear discharge bilaterally. No sinus tenderness to percussion. Ears: External canals and tympanic membranes are clear with no erythema or abnormal findings bilaterally. Oropharynx: No erythema or exudates. No dysphonia. No drooling or stridor. Eyes: Pupils equal and react to light. Extraocular motions are intact. Neck: Supple with no meningismus. No lymphadenopathy Lungs: Clear to auscultation bilaterally with no rales, rhonchi. Faint expiratory wheeze only if he coughs. No respiratory distress. Cardiac: Regular rate and rhythm with no murmur gallop or rub Skin: No rash or pallor. Neuro: Alert with no focal deficits noted. Initial differential diagnosis: URI with cough, early viral bronchitis. Doubt lower respiratory infection given lack of suggestive findings. Constitutional: Initial Vital Signs Temperature (C) 36.8 C 07/20/17 12:17 Heart Rate 104 H 07/20/17 12:17 Respiratory Rate 16 07/20/17 12:17 Blood Pressure 163/106 H 07/20/17 12:17 O2 Sat (%) 97 07/20/17 12:17 O2 Delivery Mode Room Air Allergies/Adverse Reactions: Penicillins Allergy (Verified 07/20/17 12:16) Home Medications: Medication Instructions Recorded Albuterol PRN 05/12/17 Albuterol Hfa Anes Only [Proair 2 puffs IH Q4 PRN #1 mdi 07/20/17 Hfa Icu (*)] MDM/Departure - [facility] ED Course/Re-evaluation: Patient appears quite well here clinically without clinical evidence of lower respiratory infection or other complicating factors. I counseled him regarding viral URI. Given occasional feelings of wheezing and shortness of breath with relief in the past from albuterol will prescribe albuterol inhaler if needed for symptoms. I counseled him regarding this. - Depart Disposition: Home, Routine, Self-Care Clinical Impression: Viral URI with cough Condition: Good Instructions: Upper Respiratory Infection (ED) Additional Instructions: Diagnosis: Viral upper respiratory infection with cough Plan: Humidifier Guaifenesin If you feel wheezy or short of breath, then use the albuterol inhaler-2 puffs per 4 hours for cough, wheeze or shortness of breath Tylenol or ibuprofen for discomfort if needed Your symptoms should improve over the next 3-7 days. Return for recheck if you have significant worsening of her symptoms despite the treatment plan
[2017-07-20 12:59] VITALS: RESP 20
== END 2017-07-20 13:10 | disposition home or self-care (01) ==
LOC: CED 12:12
DX: J06.9 Acute upper respiratory infection, unspecified (principal)

== ENCOUNTER 2017-08-10 07:11 | Emergency (ER) | payer MEDICAID ==
--- NOTE | 2017-08-10 08:22 | EDPHY ---
H & P Time Seen by Provider: 08/10/17 08:21 HPI/ROS: Chief complaint. Sore throat HPI. 62-year-old male presents emergency department with sore throat especially in the morning and thick phlegm that is described as white for more than 2 weeks. Symptoms are worse in the morning. He has a cough that is also productive of whitish sputum. No chest discomfort. No fever. No known exposures. Similar symptoms in April and was treated with prednisone and antibiotic with diagnosis of bronchitis. He got better. He was seen in the [facility] emergency department 2 weeks ago and was diagnosed with viral infection. He has been using an inhaler with inadequate relief. No recent travel. ROS Constitutional. no fever/chills, no weakness Eyes. no problems with vision ENT. Slight sore throat and thick phlegm in the morning Cardiovascular. no chest pain Respiratory. Cough and slight shortness of breath Abdominal. no abdominal pain, no nausea/vomiting, no diarrhea . no problems urinating MS. no calf pain/swelling, no neck/back pain, no joint pain Skin. no rash Lymph. no swollen glands Neuro. no headache, no dizziness, no difficulty walking or with speech Past Medical/Surgical History: Past medical history bronchitis and tonsillectomy Social History: Single, daily smoker, no alcohol Smoking Status: Never smoked Physical Exam: General Appearance: Alert well-developed male mild distress vital signs are stable Eyes: Pupils equal and round no pallor or injection. ENT, tympanic membranes are normal. Pharynx without injection. Mucous membranes are moist Respiratory: There are no retractions, lungs are clear to auscultation. Cardiovascular: Regular rate and rhythm. Gastrointestinal: Abdomen is soft and nontender, no masses, bowel sounds normal. Neurological: Awake and alert, sensory and motor exams grossly normal. Skin: Warm and dry, no rashes. Musculoskeletal: Neck is supple nontender. Extremities symmetrical, full range of motion. Psychiatric: Patient is oriented X 3, there is no agitation. Constitutional: Initial Vital Signs Temperature (C) 36.7 C 08/10/17 07:13 Heart Rate 96 08/10/17 07:13 Respiratory Rate 18 08/10/17 07:13 Blood Pressure 154/100 H 08/10/17 07:13 O2 Sat (%) 96 08/10/17 07:13 O2 Delivery Mode Room Air Allergies/Adverse Reactions: Penicillins Allergy (Unknown, Verified 08/10/17 07:17) Home Medications: Medication Instructions Recorded Albuterol PRN 05/12/17 Albuterol Hfa Anes Only [Proair 2 puffs IH Q4 PRN #1 mdi 07/20/17 Hfa Icu (*)] Azithromycin [Zithromax] 250 mg PO DAILY #6 tab 08/10/17 predniSONE 40 mg PO DAILY #8 tablet 08/10/17 Medical Decision Making - Diagnostics Imaging Results: Imaging Impressions Chest X-Ray 08/10/17 08:35 Impression: No acute abnormality, or substantial change from 05/12/2017. Chest x-ray reviewed by me shows no obvious pneumonia Procedures: DuoNeb updraft. Chest x-ray. ED Course/Re-evaluation: On re-evaluation patient is stable. The patient and I discussed imaging study results, treatment plan including criteria for return and importance of follow- up and further evaluation. He expresses understanding and agreement program director/music director Navi Differential Diagnosis: The patient appears to have a respiratory infection which is likely to be viral but he has had good similar symptoms and treatment with prednisone and Zithromax in the past. We will treat him for this. He is encouraged to return for worsening symptoms. He is encouraged to follow up. I considered pneumonia , bronchitis, COPD - Data Points Medications Given: Discontinued Medications Albuterol/Ipratropium (Duoneb) 3 ml IH EDNOW ONE Stop: 08/10/17 08:36 Last Admin: 08/10/17 08:43 Dose: 3 ml Departure - Departure Disposition: Home, Routine, Self-Care Clinical Impression: Bronchitis Condition: Good Instructions: Acute Bronchitis (ED) Additional Instructions: Continue the inhaler. He humidifier. Zithromax is antibiotic. Prednisone to help with breathing. Return for worsening symptoms. Recheck in 2 days for further evaluation Referrals: NONE *PRIMARY CARE P,. [Primary Care Provider] - As per Instructions [facility] [Outside] - 2-3 days, if not improved Prescriptions: Azithromycin [Zithromax] 250 mg PO DAILY #6 tab predniSONE 40 mg PO DAILY #8 tablet
[2017-08-10] MEDS ORDERED: IPRATROPIUM/ALBUTEROL 3 ML DEYVIAL IH ONE (08:35)
[2017-08-10 10:45] VITALS: BP 136/88; PULSE 82; RESP 16; TEMP 98.4; O2SAT 95
== END 2017-08-10 10:39 | disposition home or self-care (01) ==
DX: J20.9 Acute bronchitis, unspecified (principal); F17.200 Nicotine dependence, unspecified, uncomplicated

== ENCOUNTER 2017-08-18 17:08 | Emergency (ER) | payer MEDICAID ==
[2017-08-18 17:30] VITALS: BP 144/93; PULSE 98; RESP 18; TEMP 98.4; O2SAT 94
--- NOTE | 2017-08-18 18:21 | EDPHY ---
H & P Stated Complaint: COUGH, JOINT PAIN X 1 WEEK, SEEN AT [facility] WITH ACUTE BRONCHITIS Time Seen by Provider: 08/18/17 17:35 HPI/ROS: CHIEF COMPLAINT: Cough HISTORY OF PRESENT ILLNESS: This is a 62-year-old male who has been seen twice in the past 3 weeks for URI symptoms. Initially he was given an albuterol inhaler to use. He was seen again 1 week ago and diagnosed with bronchitis. At that time he was treated with azithromycin and prednisone. He finished the azithromycin but stopped taking the prednisone. He is here today with continued cough, some sinus pressure, and nasal drainage. He denies drainage into the back of his throat. He has not had headache. He was advised to be recheck packed at his last visit knee is here tonight for recheck because his primary caregivers office is closed until August 25, 1 week from now. He has not had fever. He does not feel short of breath.. He does not use tobacco. REVIEW OF SYSTEMS: A ten point review of systems was performed and is negative with the exception of the items mentioned in the HPI. At his last visit he reported joint pain. He is not complaining of joint pain to me tonight but, when asked, tells me that he does have continued joint pain, primarily in his shoulders. Past medical history: Past surgical history: Negative Social history: No tobacco use. Occasional alcohol. He is not . General Appearance: Alert. Vital signs reviewed. Blood pressure 144/93. Eyes: Pupils equal and round, no conjunctival injection, no discharge. Anicteric. ENT, Mouth: Mucous membranes are moist, no oropharyngeal erythema or edema. Neck: No lymphadenopathy, supple. Respiratory: Lungs are clear to auscultation; no wheezes, rales, or rhonchi. Cardiovascular: Regular rate and rhythm; no murmur, rub, or gallop. Gastrointestinal: Abdomen is soft and nontender, no masses or organomegaly, bowel sounds normal. Skin: Warm and dry, no rashes on exposed skin, normal color. Back: Nontender to palpation over the thoracolumbar spine. No CVAT. Extremities: No lower extremity edema, no calf tenderness or swelling. No joint deformities, swelling, or redness. Neurological: Alert and oriented. Moving all four extremities easily and equally. Psychiatric: Normal affect. - Personal History Current Tetanus Diphtheria and Acellular Pertussis (TDAP): Yes Tetanus Vaccine Date: 2012 - Medical/Surgical History Hx Asthma: No Hx Chronic Respiratory Disease: No Hx Diabetes: No Hx Cardiac Disease: No Hx Renal Disease: No Hx Cirrhosis: No Hx Alcoholism: Yes Hx HIV/AIDS: No Hx Splenectomy or Spleen Trauma: No Other PMH: MEd hx-bronchitis. SUrg-tonsilectomy - Social History Smoking Status: Never smoked Constitutional: Initial Vital Signs Temperature (C) 36.9 C 08/18/17 17:28 Heart Rate 98 08/18/17 17:28 Respiratory Rate 18 08/18/17 17:28 Blood Pressure 144/93 H 08/18/17 17:28 O2 Sat (%) 94 08/18/17 17:28 O2 Delivery Mode Room Air Allergies/Adverse Reactions: Penicillins Allergy (Unknown, Verified 08/10/17 07:17) Home Medications: Medication Instructions Recorded Albuterol PRN 05/12/17 Albuterol Hfa Anes Only [Proair 2 puffs IH Q4 PRN #1 mdi 07/20/17 Hfa Icu (*)] Azithromycin [Zithromax] 250 mg PO DAILY #6 tab 08/10/17 predniSONE 40 mg PO DAILY #8 tablet 08/10/17 Medical Decision Making ED Course/Re-evaluation: 62-year-old who is here for recheck of respiratory symptoms. He is not hypoxic or febrile. I did not hear him cough. I suspect a viral illness. I am recommending that he follow up at [facility] when thy reopen and discussed his joint pain with his doctor. In the meantime, I am suggesting symptomatic treatment with NSAIDs and Tylenol. Danger signs were reviewed. Differential Diagnosis: I considered a differential diagnosis of cough that includes but is not limited to influenza, bronchitis, pneumonia, and upper respiratory infection. Departure - Departure Disposition: Home, Routine, Self-Care Clinical Impression: Upper respiratory infection Qualifiers: URI type: unspecified URI Qualified Code(s): J06.9 - Acute upper respiratory infection, unspecified Condition: Good Instructions: Upper Respiratory Infection (ED) Additional Instructions: I think that most of your symptoms are due to a viral illness, which means that antibiotics will not be helpful. I do not think that you have pneumonia. Adult Pain & Fever Control: We recommend Acetaminophen (Tylenol) and Ibuprofen (Motrin,Advil) for pain and fever control. When fever is high or pain severe, both drugs can be used at the same time, but at different intervals. Please note the time differences. Your dose is: Acetaminophen 650mg every 4 to 6 hours Ibuprofen 400mg every 6 hours with food OR Note: do not take Acetaminophen with Hydrocodone (Vicodin, Lortab) or Oycodone (Percocet). These medications also contain Acetaminophen. No more than 3000mg of Acetaminophen should be taken in 24 hours (for an adult). I recommend that you take Tylenol and ibuprofen for the joint pain that you are experiencing. I have given you dosing instructions above. Continue to use the inhalers in sinus medications that you are using. You should follow up with your primary care physician when the clinic reopens. Referrals: ROD SANTIAGO,. [Primary Care Provider] - As per Instructions
== END 2017-08-18 18:25 | disposition home or self-care (01) ==
LOC: CED 17:08
DX: J06.9 Acute upper respiratory infection, unspecified (principal)